=== PATIENT | female | born 2000 | race Caucasian/White ===

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

== ENCOUNTER 2022-02-27 08:00 | Outpatient (CLI) | payer OTHER, MEDICAID ==
[2022-02-27 22:58] LABS: BACTERIAL VAGINOSIS DNA POSITIVE (NEGATIVE); CANDIDA GLABRATA DNA NEGATIVE (NEGATIVE); CANDIDA GROUP DNA NEGATIVE (NEGATIVE); CANDIDA KRUSEI DNA NEGATIVE (NEGATIVE); TRICHOMONAS VAGINALIS DNA NEGATIVE (NEGATIVE)
[2022-02-28 00:03] LABS: CHLAMYDIA TRACHOMATIS DNA NEGATIVE (NEGATIVE); NEISSERIA GONORRHOEAE DNA NEGATIVE (NEGATIVE)
== END 2022-02-27 23:59 | disposition home or self-care (01) ==
LOC: LAB.N 08:00
PROVIDERS: ATTEND Nurse Practitioner
DX: N89.8 Other specified noninflammatory disorders of vagina (principal)
CPT/HCPCS: 81514; 87491; 87591; 87661

== ENCOUNTER 2022-03-01 11:50 | Outpatient (CLI) | payer OTHER, MEDICAID ==
[2022-03-01 18:12] LABS: HCG,QUALITATIVE BLOOD NEGATIVE
[2022-03-02 03:09] LABS: HCV AB <0.1 s/co ratio (0.0-0.9)
[2022-03-02 08:09] LABS: RPR Non Reactive (Non Reactive)
[2022-03-02 09:09] LABS: HIV SCREEN 4TH GENERATION Non Reactive (Non Reactive)
[2022-03-03 00:07] LABS: HSV 2 IGG TYPE SPEC <0.91 index (0.00-0.90)
== END 2022-03-01 11:51 | disposition home or self-care (01) ==
LOC: LAB.N 11:50
PROVIDERS: ATTEND Nurse Practitioner
DX: N89.8 Other specified noninflammatory disorders of vagina (principal)
CPT/HCPCS: 36415; 84703; 86592; 86695; 86696; 86803; 87389

== ENCOUNTER → 2022-04-11 | Outpatient (CLI) | payer OTHER, MEDICAID | END | disposition EMS.NT | LOC: EMS 07:24 | DX: F41.9 Anxiety disorder, unspecified (principal) ==

== ENCOUNTER 2022-07-17 08:00 | Outpatient (CLI) | payer OTHER, MEDICAID ==
[2022-07-17 21:01] LABS: BACTERIAL VAGINOSIS DNA NEGATIVE (NEGATIVE); CANDIDA GLABRATA DNA NEGATIVE (NEGATIVE); CANDIDA GROUP DNA NEGATIVE (NEGATIVE); CANDIDA KRUSEI DNA NEGATIVE (NEGATIVE); TRICHOMONAS VAGINALIS DNA NEGATIVE (NEGATIVE)
[2022-07-18 00:17] LABS: CHLAMYDIA TRACHOMATIS DNA NEGATIVE (NEGATIVE); NEISSERIA GONORRHOEAE DNA NEGATIVE (NEGATIVE)
== END 2022-07-17 23:59 | disposition home or self-care (01) ==
LOC: LAB.WCP 08:00
PROVIDERS: ATTEND Nurse Practitioner Family
DX: N89.8 Other specified noninflammatory disorders of vagina (principal); Z11.3 Encounter for screening for infections with a predominantly sexual mode of transmission
CPT/HCPCS: 81514; 87491; 87591; 87661

== ENCOUNTER 2022-11-02 15:15 | Outpatient (CLI) | payer OTHER, MEDICAID ==
[2022-11-03 17:28] LABS: BACTERIAL VAGINOSIS DNA POSITIVE (NEGATIVE); CANDIDA GLABRATA DNA NEGATIVE (NEGATIVE); CANDIDA GROUP DNA NEGATIVE (NEGATIVE); CANDIDA KRUSEI DNA NEGATIVE (NEGATIVE); TRICHOMONAS VAGINALIS DNA NEGATIVE (NEGATIVE)
== END 2022-11-02 15:30 | disposition home or self-care (01) ==
LOC: LAB.N 15:15
PROVIDERS: ATTEND Physician Assistant
DX: N89.8 Other specified noninflammatory disorders of vagina (principal)
CPT/HCPCS: 81514

== ENCOUNTER 2022-11-19 08:00 | Outpatient (CLI) | payer OTHER, MEDICAID ==
[2022-11-19 23:33] LABS: CHLAMYDIA TRACHOMATIS DNA NEGATIVE (NEGATIVE); NEISSERIA GONORRHOEAE DNA NEGATIVE (NEGATIVE)
[2022-11-20 00:27] LABS: BACTERIAL VAGINOSIS DNA NEGATIVE (NEGATIVE); CANDIDA GLABRATA DNA NEGATIVE (NEGATIVE); CANDIDA GROUP DNA POSITIVE (NEGATIVE); CANDIDA KRUSEI DNA NEGATIVE (NEGATIVE); TRICHOMONAS VAGINALIS DNA NEGATIVE (NEGATIVE)
== END 2022-11-19 23:59 | disposition home or self-care (01) ==
LOC: LAB.N 08:00
PROVIDERS: ATTEND Nurse Practitioner
DX: N89.8 Other specified noninflammatory disorders of vagina (principal)
CPT/HCPCS: 81514; 87491; 87591; 87661

== ENCOUNTER 2023-01-23 08:00 | Outpatient (CLI) | payer OTHER, MEDICAID ==
[2023-01-23 21:01] LABS: BACTERIAL VAGINOSIS DNA NEGATIVE (NEGATIVE); CANDIDA GLABRATA DNA NEGATIVE (NEGATIVE); CANDIDA GROUP DNA NEGATIVE (NEGATIVE); CANDIDA KRUSEI DNA NEGATIVE (NEGATIVE); TRICHOMONAS VAGINALIS DNA NEGATIVE (NEGATIVE)
== END 2023-01-23 23:59 | disposition home or self-care (01) ==
LOC: LAB.WC 08:00
PROVIDERS: ATTEND Obstetrics & Gynecology
DX: N76.0 Acute vaginitis (principal)
CPT/HCPCS: 81514

== ENCOUNTER 2023-03-14 08:00 | Outpatient (CLI) | payer OTHER, MEDICAID ==
[2023-03-15 11:09] LABS: BACTERIAL VAGINOSIS DNA NEGATIVE (NEGATIVE); CANDIDA GLABRATA DNA NEGATIVE (NEGATIVE); CANDIDA GROUP DNA POSITIVE (NEGATIVE); CANDIDA KRUSEI DNA NEGATIVE (NEGATIVE); TRICHOMONAS VAGINALIS DNA NEGATIVE (NEGATIVE)
== END 2023-03-14 23:58 | disposition home or self-care (01) ==
LOC: LAB.N 08:00
PROVIDERS: ATTEND Nurse Practitioner
DX: N89.8 Other specified noninflammatory disorders of vagina (principal)
CPT/HCPCS: 81514

== ENCOUNTER 2023-03-30 13:15 | Outpatient (CLI) | payer OTHER, MEDICAID | END 2023-03-30 13:30 | disposition home or self-care (01) | LOC: LAB.N 13:15 | PROVIDERS: ATTEND Registered Nurse | DX: R30.0 Dysuria (principal) | CPT/HCPCS: 87086 ==

== ENCOUNTER 2023-04-18 14:56 | Emergency (ER) | payer OTHER, MEDICAID ==
--- NOTE | 2023-04-18 15:26 | ED Physician Documentation ---
PD HPI LOWER EXT INJURY - Stated complaint Stated Complaint: RT KNEE INJ - Chief complaint Chief Complaint: Trauma Ext - History obtained from History obtained from: Patient - History of Present Illness PD HPI LOW EXT INJURY LOCATION: Right, Knee Type of injury: Fall (Slipped and fell at work falling to the left side onto her elbow and directly striking the in side anterior part of her right knee with pain there. This increased over the next couple of hours with swelling. Unable to walk now. FROM of elbow.) Where injury occurred: Work Timing - details: Abrupt onset, Still present Worsened by: Moving, Palpating, Other (weight bearing and flexion more than 90 degrees.) Associated symptoms: Swelling. No: Weakness, Numbness Similar symptoms before: Has not had sx before Review of Systems Neurologic: denies: Focal weakness, Numbness, Head injury PD PAST MEDICAL HISTORY - Past Medical History Past Medical History: No Cardiovascular: None Respiratory: None Neuro: None Endocrine/Autoimmune: None GI: None [employer] BANKER: None : None HEENT: None Psych: None Musculoskeletal: None Derm: None - Past Surgical History Past Surgical History: Yes - Present Medications Home Medications: Ambulatory Orders Medication Instructions Recorded Confirmed Neomycin/Polymyx/Hc Otic Drops 4 drops OT TID 10 Days #1 bottle 04/12/20 [Cortisporin Ear Susp] traZODone [Desyrel] 50 mg PO DAILY 04/16/20 04/16/20 Ethinyl Estradiol/Drospirenone 1 tab PO DAILY 04/17/20 04/17/20 [[place] 28 Tablet] cephALEXin [Keflex] 500 mg PO BID #14 11/22/20 Cefpodoxime Proxetil [Vantin] 100 mg PO Q12H #14 tablet 05/31/21 - Allergies Allergies/Adverse Reactions: Allergies Allergy/AdvReac Type Severity Reaction Status Date / Time No Known Drug Allergies Allergy Verified 04/18/23 15:03 - Social History Does the pt smoke?: No Smoking Status: Never smoker Does the pt drink ETOH?: No Does the pt have substance abuse?: Yes - Immunizations Immunizations are current?: Yes PD ED PE NORMAL - Vitals Vital signs reviewed: Yes - General General: Alert and oriented X 3, No acute distress, Well developed/nourished - Derm Derm: Normal color, Warm and dry - Extremities Extremities: Other (left elbow with minimal tenderness and has full extension and ROM. Right knee with moderate effusion anteriorly in patellar area. No noted deformity nor dislocaiton. Basic cruciate/collateral testing without laxity nor [facility] pain. IMpaction/Apley without much pain. Tneder mainly paripatellar. ) - Neuro Neuro: Alert and oriented X 3, No motor deficit, No sensory deficit, Normal speech Results - Vitals Vitals: Vital Signs - 24 hr 04/18/23 04/18/23 15:03 16:54 Temperature 36.7 C Heart Rate 78 81 Respiratory 16 17 Rate Blood Pressure 129/72 115/70 O2 Saturation 100 98 Oxygen O2 Source Room air - Rads (name of study) [facility] knee Relevant Findings:: Prelim report reviewed, EMP independent interpretation of test (no fractures. Some anterior effusion. ) PD Medical Decision Making - ED course Complexity details: reviewed results (No fracture seen on x-ray.), re-evaluated patient, considered differential (Slip and fall with direct impact of the anteromedial right knee with developing swelling. Some twist component. Initially able to stand with discomfort now hurting worse.), d/w patient ED course: fell and landed right knee anteromedial, with pain and swelling/anterior effusion. Did not have much rotational aspect to the injury, so less likely ACL/MCL nor meniscal, though meniscal will be hardest to tell on exam currently due to efusion/swelling and pain of it. Departure - Departure Disposition: 01 Home, Self Care Clinical Impression: Fall from slip, trip, or stumble, Knee sprain Condition: Stable Record reviewed to determine appropriate education?: Yes Instructions: ED Effusion Knee Follow-Up: Caitlyn Cash ARNP [Primary Care Provider] - [facility] [Provider Group] Comments: Your x-ray is good without any signs of fractures. The main ligaments of your knee such as the cruciates and collaterals do not feel torn or injured on simple exam. Hopefully this is just bruised well with swelling in the knee joint. Other consideration could be part of the cartilage in the knee/meniscus. At this point we go with a knee brace to help support the knee ligaments and muscles. Crutches for partial to no weightbearing to help with comfort. Progress weightbearing as tolerated but continue with the knee brace until feeling much more resolved. I would consider regular use of naproxen or ibuprofen as an anti-inflammatory and for pain. To that add Tylenol 500 to 650 mg 4 times daily regularly for the next several days or so to help with pain as well. Rest and ice the knee often to help reduce the effusion/swelling in the joint. Progress weightbearing and use as tolerated over the next week or so. Follow-up with orthopedics if not improved well over the next week and resolved by 1 or 2 weeks. Forms: PCP List, Activity restrictions Discharge Date/Time: 04/18/23 16:54
--- NOTE | 2023-04-18 15:32 | XRAY Report ---
PROCEDURE: Knee 4 View RT INDICATIONS: Trauma TECHNIQUE: 4 views of the knee(s) were acquired. COMPARISON: None. FINDINGS: Bones: No fractures or dislocations. No suspicious bony lesions. Soft tissues: Small knee joint effusion. No suspicious soft tissue calcifications or masses. IMPRESSION: No acute fracture. No osseous lesion. If symptoms and/or clinical suspicion for pathology continue, f urther assessment with repeat plain films, or advanced imaging (e.g., CT, MRI, or bone scan) is recom mended for further assessment. Reviewed by: Cleveland Kay MD on 04/18/2023 3:31 PM PST Approved by: Cleveland Kay MD on 04/18/2023 3:31 PM PST Station ID: [id number]
[2023-04-18] MEDS ORDERED: ACETAMINOPHEN 325 MG TABLET PO STA (15:42)
[2023-04-18 17:04] VITALS: BP 115/70; O2SAT 98
== END 2023-04-18 16:54 | disposition home or self-care (01) ==
LOC: ED 14:56
DX: S83.91XA Sprain of unspecified site of right knee, initial encounter (principal); W01.0XXA Fall on same level from slipping, tripping and stumbling without subsequent striking against object, initial encounter; Y99.0 Civilian activity done for income or pay
CPT/HCPCS: 73564; 99283; A9270

== ENCOUNTER 2023-07-22 11:41 | Outpatient (CLI) | payer OTHER, MEDICAID ==
[2023-07-22 18:07] LABS: ALBUMIN 4.3 g/dL (3.2-5.5); ALKALINE PHOSPHATASE 49 IU/L (42-121); ALT ALANINE AMINOTRANSFERASE 17 IU/L (10-60); AST ASPARTATE AMINOTRANSFERASE 17 IU/L (10-42); BILIRUBIN,TOTAL 0.4 mg/dL (0.2-1.0); BUN - BLOOD UREA NITROGEN 14 mg/dL (6-20); CALCIUM 9.5 mg/dL (8.5-10.3); CARBON DIOXIDE - CO2 26 mmol/L (21-32); CHLORIDE 105 mmol/L (101-111); CHOL/HDL RATIO 2.3 (<4.4); CHOLESTEROL 126 mg/dL; CREATININE 0.9 mg/dL (0.6-1.3); GFR - MDRD 80 (>89); GLUCOSE 72 mg/dL (74-104); HDL CHOLESTEROL 56 mg/dL; LDL CHOLESTEROL,CALCULATED 55 mg/dL; POTASSIUM 3.6 mmol/L (3.5-4.5); SODIUM 139 mmol/L (135-145); TOTAL PROTEIN 6.5 g/dL (6.4-8.9); TRIGLYCERIDES 75 mg/dL (48-352); VLDL CHOLESTEROL 15 mg/dL
[2023-07-22 18:20] LABS: THYROID STIMULATING HORMONE 1.05 uIU/mL (0.34-5.60)
[2023-07-22 20:32] LABS: CHLAMYDIA TRACHOMATIS DNA NEGATIVE (NEGATIVE); NEISSERIA GONORRHOEAE DNA NEGATIVE (NEGATIVE); TRICHOMONAS VAGINALIS DNA NEGATIVE (NEGATIVE)
[2023-07-23 15:09] LABS: CYTOMEGALOVIRUS (CMV) AB IGG <0.60 U/mL (0.00-0.59); CYTOMEGALOVIRUS (CMV) AB IGM <30.0 AU/mL (0.0-29.9); EBV AB VCA IGM <36.0 U/mL (0.0-35.9); EBV NUCLEAR ANTIGEN AB IGG <18.0 U/mL (0.0-17.9)
== END 2023-07-22 11:42 | disposition home or self-care (01) ==
LOC: LAB.N 11:41
PROVIDERS: ATTEND Nurse Practitioner
DX: J02.9 Acute pharyngitis, unspecified (principal); B34.9 Viral infection, unspecified; R59.1 Generalized enlarged lymph nodes; Z13.220 Encounter for screening for lipoid disorders; Z11.3 Encounter for screening for infections with a predominantly sexual mode of transmission
CPT/HCPCS: 36415; 80053; 80061; 83721; 84443; 85025; 86592; 86644; 86645; 86664; 86665; 87491; 87591; 87661

== ENCOUNTER 2023-07-24 14:07 | Outpatient (CLI) | payer OTHER, MEDICAID ==
[2023-07-24 17:36] LABS: BASOPHILS % (AUTO) 0.7 %; EOSINOPHILS # (AUTO) 0.1 10^3/uL (0.0-0.7); EOSINOPHILS % (AUTO) 2.5 %; HCT - HEMATOCRIT 41.2 % (37.0-47.0); HGB - HEMOGLOBIN 14.2 g/dL (12.0-16.0); LYMPHOCYTES # (AUTO) 1.2 10^3/uL (1.5-3.5); LYMPHOCYTES % (AUTO) 28.6 %; MEAN CORPUSCULAR HEMOGLOBIN 32.6 pg (27.0-31.0); MEAN CORPUSCULAR HGB CONC 34.5 g/dL (32.0-36.0); MEAN CORPUSCULAR VOLUME 94.5 fL (81.0-99.0); MONOCYTES # (AUTO) 0.4 10^3/uL (0.0-1.0); NEUTROPHILS # (AUTO) 2.6 10^3/uL (1.5-6.6); PLT - PLATELET COUNT 181 10^3/uL (130-450); RED BLOOD COUNT 4.36 10^6/uL (4.20-5.40); RED CELL DISTRIBUTION WIDTH 11.4 % (12.0-15.0); WHITE BLOOD COUNT 4.3 x10^3/uL (4.8-10.8)
== END 2023-07-24 14:08 | disposition home or self-care (01) ==
LOC: LAB.N 14:07
PROVIDERS: ATTEND Nurse Practitioner
DX: B34.9 Viral infection, unspecified (principal); J02.9 Acute pharyngitis, unspecified; R59.1 Generalized enlarged lymph nodes
CPT/HCPCS: 36415; 85025; 87798

== ENCOUNTER 2023-10-09 08:00 | Outpatient (CLI) | payer MEDICAID, OTHER ==
[2023-10-10 02:49] LABS: BACTERIAL VAGINOSIS DNA NEGATIVE (NEGATIVE); CANDIDA GLABRATA DNA NEGATIVE (NEGATIVE); CANDIDA GROUP DNA NEGATIVE (NEGATIVE); CANDIDA KRUSEI DNA NEGATIVE (NEGATIVE); TRICHOMONAS VAGINALIS DNA NEGATIVE (NEGATIVE)
== END 2023-10-09 23:59 | disposition home or self-care (01) ==
LOC: LAB.N 08:00
PROVIDERS: ATTEND Physician Assistant Medical
DX: N89.8 Other specified noninflammatory disorders of vagina (principal)
CPT/HCPCS: 81514

== ENCOUNTER 2023-10-24 15:25 | Outpatient (CLI) | payer MEDICAID | END 2023-10-24 18:16 | disposition home or self-care (01) | LOC: LAB.N 15:25 | PROVIDERS: ATTEND Physician Assistant Medical | DX: N39.0 Urinary tract infection, site not specified (principal) | CPT/HCPCS: 87086 ==

== ENCOUNTER 2023-11-07 08:00 | Outpatient (CLI) | payer MEDICAID | END 2023-11-07 23:59 | disposition home or self-care (01) | LOC: LAB.N 08:00 | PROVIDERS: ATTEND Physician Assistant Medical | DX: R10.9 Unspecified abdominal pain (principal) | CPT/HCPCS: 87086 ==

== ENCOUNTER 2023-11-19 08:00 | Outpatient (CLI) | payer MEDICAID | END 2023-11-19 23:59 | disposition home or self-care (01) | LOC: LAB.N 08:00 | PROVIDERS: ATTEND Family Medicine | DX: R30.0 Dysuria (principal) | CPT/HCPCS: 87086 ==

== ENCOUNTER 2024-01-27 16:45 | Outpatient (CLI) | payer MEDICAID ==
[2024-01-27 23:00] LABS: BACTERIAL VAGINOSIS DNA NEGATIVE (NEGATIVE); CANDIDA GLABRATA DNA NEGATIVE (NEGATIVE); CANDIDA GROUP DNA NEGATIVE (NEGATIVE); CANDIDA KRUSEI DNA NEGATIVE (NEGATIVE); TRICHOMONAS VAGINALIS DNA NEGATIVE (NEGATIVE)
== END 2024-01-27 17:00 | disposition home or self-care (01) ==
LOC: LAB.N 16:45
PROVIDERS: ATTEND Physician Assistant Medical
DX: R30.0 Dysuria (principal); N89.8 Other specified noninflammatory disorders of vagina
CPT/HCPCS: 81514; 87086